=== PATIENT | male | born 1990 ===

== ENCOUNTER 2016-08-07 19:00 | Emergency (ER) | payer OTHER ==
--- NOTE | 2016-08-07 21:18 | UC ---
Laceration HPI - HPI Summary HPI Summary: L knee lac[place]. Gaping wound on anterior knee. - History Of Current Complaint Chief Complaint: UCLaceration Stated Complaint: LEFT KNEE LACERATION Time Seen by Provider: 08/07/16 20:58 Hx Obtained From: Patient Laceration Location: Knee Mechanism Of Injury: Blunt Trauma Onset/Duration: Sudden Onset Severity: Moderate - Allergies/Home Medications Allergies/Adverse Reactions: Allergies Allergy/AdvReac Type Severity Reaction Status Date / Time No Known Allergies Allergy Verified 08/07/16 19:46 PMH/Surg Hx/FS Hx/Imm Hx Endocrine History Of: Denies: Diabetes, Thyroid Disease Cardiovascular History Of: Denies: Cardiac Disorders, Hypertension Respiratory History Of: Denies: COPD, Asthma GI/ History Of: Denies: Ulcer - Surgical History Surgical History: Yes Surgery Procedure, Year, and Place: tonsillectomy - Family History Known Family History: Negative: Blood Disorder - Social History Alcohol Use: None Substance Use Type: None Smoking Status (MU): Former Smoker Review of Systems Constitutional: Negative Skin: Other - lac to L knee Eyes: Negative ENT: Negative Respiratory: Negative Cardiovascular: Negative Gastrointestinal: Negative Genitourinary: Negative Motor: Negative Neurovascular: Negative Musculoskeletal: Negative Neurological: Negative Psychological: Negative All Other Systems Reviewed And Are Negative: Yes Physical Exam Triage Information Reviewed: Yes Appearance: Well-Appearing, No Pain Distress, Well-Nourished Vital Signs: Initial Vital Signs Temp 98.3 F 08/07/16 19:37 Pulse 58 08/07/16 19:37 Resp 16 08/07/16 19:37 BP 144/49 08/07/16 19:37 Pulse Ox 100 08/07/16 19:37 Vital Signs Reviewed: Yes Eye Exam: Normal Eyes: Positive: Conjunctiva Clear ENT Exam: Normal ENT: Positive: Normal ENT inspection, Hearing grossly normal, Pharynx normal, TMs normal Dental Exam: Normal Neck exam: Normal Neck: Positive: Supple, Nontender, No Lymphadenopathy Respiratory Exam: Normal Respiratory: Positive: Chest non-tender, Lungs clear, Normal breath sounds, No respiratory distress, No accessory muscle use Cardiovascular Exam: Normal Cardiovascular: Positive: RRR, No Murmur Musculoskeletal: Positive: Strength Intact, ROM Intact Neurological Exam: Normal Psychological Exam: Normal Skin Exam: Other - 6.5cm gaping lac L knee Laceration Repair - Laceration Repair 1 Description: Stellate Laceration Size After Repair: Length (cm) - 6, Width (mm) - 0, Depth (mm) - 0 Anesthesia Used: 2.0% Lido - 7mL Cleansing Completed Via Routine Prep: Yes Irrigation With Pressure Irrigation Device: Yes Closure Material: [place] Laceration Course/Dx - Course/Dx Course Of Treatment: last tdap was 1-2 months ago. - Differential Dx - Laceration/Wound Provider Diagnoses: L knee laceration repair. elevated blood pressure due to discomfort Discharge - Discharge Plan Condition: Stable Disposition: HOME
[2016-08-07] MEDS ORDERED: Lidocaine 2% PF* 5 ML VIAL ONE (21:24)
== END 2016-08-07 22:20 | disposition home or self-care (01) ==
LOC: UCEAST 19:00
DX: S81.012A Laceration without foreign body, left knee, initial encounter (principal); V00.321A Fall from snow-skis, initial encounter; Y93.23 Activity, snow (alpine) (downhill) skiing, snowboarding, sledding, tobogganing and snow tubing; Y92.838 Other recreation area as the place of occurrence of the external cause; R03.0 Elevated blood-pressure reading, without diagnosis of hypertension; Z87.891 Personal history of nicotine dependence
CPT/HCPCS: 12002; 99203; G0463